=== PATIENT | male | born 1995 | race Caucasian/White ===

== ENCOUNTER 2018-06-04 20:09 | Emergency (ER) | payer OTHER ==
--- NOTE | 2018-06-04 20:50 | ER Document Report ---
ED GI/ - General Chief Complaint: Flank Pain Stated Complaint: ABDOMINAL PAIN Time Seen by Provider: 06/04/18 20:37 Notes: Patient is a 23-year-old male that comes to the emergency department for chief complaint of pain in his left lower back and also pain in his left lower abdomen. Symptoms started 2-3 days ago, since they have not resolved he started wondering if he had a kidney stone. He denies any nausea or vomiting, severe pain, fever or chills, dysuria, hematuria, or history of kidney stones. He denies trauma. He reports normal bowel movement within the past 24 hours. He denies any daily medications, surgeries, or any medical history. TRAVEL OUTSIDE OF THE [place] IN LAST 30 DAYS: No - Related Data Allergies/Adverse Reactions: No Known Allergies Allergy (Unverified 06/04/18 20:14) Past Medical History - General Information source: Patient - Social History Smoking Status: Never Smoker Drug Abuse: None Lives with: Alone Family History: Reviewed & Not Pertinent - Medical History Medical History: Negative Surgical Hx: Negative - Immunizations Immunizations up to date: Yes Hx Diphtheria, Pertussis, Tetanus Vaccination: Yes Review of Systems - Review of Systems Constitutional: No symptoms reported EENT: No symptoms reported Cardiovascular: No symptoms reported Respiratory: No symptoms reported Gastrointestinal: See HPI Genitourinary: See HPI Male Genitourinary: No symptoms reported Musculoskeletal: See HPI Skin: No symptoms reported Hematologic/Lymphatic: No symptoms reported Neurological/Psychological: No symptoms reported Physical Exam - Vital signs Vitals: Temp Pulse Resp BP Pulse Ox 97.9 F 80 14 153/79 H 99 06/04/18 20:15 06/04/18 20:15 06/04/18 20:15 06/04/18 20:15 06/04/18 20:15 - Notes Notes: GENERAL: Alert, interacts well. No acute distress. Sitting up in bed, very well -appearing. HEAD: Normocephalic, atraumatic. EYES: Pupils equal, round, and reactive to light. Extraocular movements intact. ENT: Oral mucosa moist, tongue midline. NECK: Full range of motion. Supple. Trachea midline. LUNGS: Clear to auscultation bilaterally, no wheezes, rales, or rhonchi. No respiratory distress. HEART: Regular rate and rhythm. No murmur ABDOMEN: Left lower quadrant tenderness on palpation, reproducible, however no guarding, no rigidity, no rebound tenderness. Remaining abdomen is completely benign. Groin/testicular area nontender. EXTREMITIES: Moves all 4 extremities spontaneously. No edema, normal radial and dorsalis pedis pulses bilaterally. No cyanosis. BACK: no cervical, thoracic, lumbar midline tenderness. No CVA tenderness. There is mild paraspinal lumbar muscular tenderness noted. No traumatic findings. NEUROLOGICAL: Alert and oriented x3. Normal speech. [cranial nerves II through XII grossly intact]. PSYCH: Normal affect, normal mood. SKIN: Warm, dry, normal turgor. No rashes or lesions noted. Course - Re-evaluation Re-evalutation: Patient has left paralumbar musculature tenderness on exam, no CVA tenderness, however he does have mild left lower quadrant tenderness. CBC unremarkable, chemistry unremarkable, urinalysis unremarkable without infection or hematuria. X-ray of the abdomen shows some retained stool but no air-fluid levels or concerning findings. No visualized kidney stone. Reevaluated patient, he remains very well-appearing. Based on his evaluation and workup I feel it is most likely that his symptoms are from muscular back pain and general bowel pain, low suspicion of passing ureterolithiasis or acute abdomen. Vital signs are unremarkable. Patient not requiring anything for pain. I discussed details with patient, he agrees, does not want a CAT scan or additional evaluation, will try conservative methods at home, follow-up, and return precautions were discussed. Patient states understanding and agreement. - Vital Signs Vital signs: Temp Pulse Resp BP Pulse Ox 98.1 F 77 16 120/63 98 06/04/18 22:39 06/04/18 22:39 06/04/18 22:39 06/04/18 22:39 06/04/18 22:39 - Laboratory Result Diagrams: 06/04/18 20:50 06/04/18 20:50 Laboratory results interpreted by me: 06/04/18 20:50 RBC 5.59 H MCV 79 L MCH 26.4 L Discharge - Discharge Clinical Impression: Flank pain Abdominal pain Qualifiers: Abdominal location: left lower quadrant Qualified Code(s): R10.32 - Left lower quadrant pain Condition: Stable Disposition: HOME, SELF-CARE Additional Instructions: Your workup today does not suggest a passing kidney stone, infection, or concerning abnormality. Exam indicates your back pain is from musculoskeletal strain/spasm, take the muscle relaxer as prescribed, apply heat to the area. Your exam of the abdomen along with x-ray and labs are most suggestive of bowel source of pain, I recommend the stool softener, take the Toradol if needed for pain, symptoms should resolve after couple of days. Return if you worsen including severe pain of the abdomen, vomiting, fever of 100.4 or greater, or any other concerning or worsening symptoms. Prescriptions: Ketorolac Tromethamine [Toradol 10 mg Tablet] 10 mg PO Q8HP PRN #24 tablet PRN Reason: Docusate Sodium [Colace 100 mg Capsule] 100 mg PO ASDIR PRN #30 capsule PRN Reason: Methocarbamol [Robaxin 750 mg Tablet] 750 mg PO Q6 PRN #20 tablet PRN Reason:
[2018-06-04 21:05] LABS: ABSOLUTE BASOPHILS # (AUTO) 0.1 10^3/uL (0.0-0.2); ABSOLUTE EOSINOPHILS # (AUTO) 0.5 10^3/uL (0.0-0.6); ABSOLUTE LYMPHOCYTES (AUTO) 3.1 10^3/uL (0.5-4.7); ABSOLUTE NEUT (AUTO) 5.2 10^3/uL (1.7-8.2); BASOPHILS % (AUTO) 1.1 % (0-2); EOSINOPHILS % (AUTO) 5.5 % (0-6); HEMATOCRIT 44.1 % (37.9-51.0); HEMOGLOBIN 14.8 g/dL (13.5-17.0); MEAN CORPUSCULAR HEMOGLOBIN 26.4 pg (27.0-33.4); MEAN CORPUSCULAR HGB CONC 33.5 g/dL (32.0-36.0); MEAN CORPUSCULAR VOLUME 79 fl (80-97); MONOCYTES % (AUTO) 10.6 % (3-13); PLATELET COUNT 307 10^3/uL (150-450); RED BLOOD COUNT 5.59 10^6/uL (4.35-5.55); RED CELL DISTRIBUTION WIDTH 12.7 % (11.5-14.0); SEGMENTED NEUTROPHILS % (AUTO) 51.8 % (42-78); TOTAL CELLS COUNTED % (AUTO) 100 %; WHITE BLOOD COUNT 9.9 10^3/uL (4.0-10.5)
[2018-06-04 21:12] LABS: AMORPHOUS SEDIMENT,URINE TRACE /HPF; APPEARANCE,URINE CLOUDY; BILIRUBIN,URINE NEGATIVE (NEGATIVE); COLOR,URINE YELLOW; GLUCOSE, URINE NEGATIVE (NEGATIVE); KETONES,URINE NEGATIVE (NEGATIVE); LEUKOCYTE ESTERASE,URINE NEGATIVE (NEGATIVE); NITRITE,URINE NEGATIVE (NEGATIVE); PROTEIN,URINE NEGATIVE (NEGATIVE); URINE SPECIFIC GRAVITY 1.026; UROBILINOGEN,URINE NEGATIVE mg/dL (<2.0)
[2018-06-04 21:23] LABS: ALANINE AMINOTRANSFERASE 24 U/L (21-72); ALBUMIN 4.4 g/dL (3.5-5.0); ALKALINE PHOSPHATASE 81 U/L (38-126); ANION GAP 12 (5-19); ASPARTATE AMINO TRANSFERASE 18 U/L (17-59); BILIRUBIN,DIRECT 0.2 mg/dL (0.0-0.4); BILIRUBIN,TOTAL 0.4 mg/dL (0.2-1.3); BLOOD UREA NITROGEN 14 mg/dL (7-20); CALCIUM 9.5 mg/dL (8.4-10.2); CARBON DIOXIDE 27 mmol/L (22-30); CHLORIDE 105 mmol/L (98-107); GLUCOSE 100 mg/dL (75-110); POTASSIUM 4.1 mmol/L (3.6-5.0); SODIUM 144.2 mmol/L (137-145); TOTAL PROTEIN 7.7 g/dL (6.3-8.2)
--- NOTE | 2018-06-04 22:14 | RADIOLOGY REPORT (SQ) ---
EXAM DESCRIPTION: KUB/ABDOMEN (SINGLE VIEW) COMPLETED DATE/TIME: 06/04/2018 10:03 pm REASON FOR STUDY: LLQ and left flank pain; ?kidney stone COMPARISON: None. NUMBER OF VIEWS: One view. TECHNIQUE: Supine radiographic image of the abdomen acquired. LIMITATIONS: None. FINDINGS: BOWEL GAS PATTERN: Normal bowel gas pattern. No dilated loops. CALCIFICATIONS: No suspicious calcifications. SOFT TISSUES: No gross mass or suggestion of organomegaly. HARDWARE: None in the abdomen. BONES: No acute fracture. No worrisome bone lesions. OTHER: No other significant finding. IMPRESSION: NO RADIOGRAPHIC EVIDENCE FOR ACUTE ABDOMINAL DISEASE. TECHNICAL DOCUMENTATION: JOB ID: [id number] [employer]- All Rights Reserved Reading location - IP/workstation name: [email or web address]
[2018-06-04 22:40] VITALS: BP 120/63
== END 2018-06-04 22:40 | disposition home or self-care (01) ==
LOC: ER 20:09
DX: K59.00 Constipation, unspecified (principal); R10.32 Left lower quadrant pain; M54.5 Low back pain; R10.9 Unspecified abdominal pain
CPT/HCPCS: 36415; 74018; 80053; 81001; 85025; 99284